=== PATIENT | female | born 1940 | race Caucasian/White ===

== ENCOUNTER 2024-03-27 14:28 | Outpatient (REF) | payer MEDICARE, OTHER, SELFPAY ==
[2024-03-27 19:18] LABS: TSH reflex Free T4 0.94 uIU/mL (0.32-4.0)
[2024-03-27 19:28] LABS: Folate 6.5 ng/mL (> or = 4.0); Vitamin B12 411 pg/mL (200-900)
[2024-04-02 13:28] LABS: Vitamin D 25-OH, D2 <4 ng/mL; Vitamin D 25-OH, D3 27 ng/mL; Vitamin D 25-OH, Total 27 ng/mL (30-100)
== END 2024-03-27 14:29 | disposition home or self-care (01) ==
LOC: HO.LAB 14:28
PROVIDERS: PCP Internal Medicine; Visit Provider Nurse Practitioner Family
DX: R19.7 Diarrhea, unspecified (principal); K59.00 Constipation, unspecified
CPT/HCPCS: 36415; 82306; 82607; 82746; 84443; 99202

== ENCOUNTER 2024-03-27 14:28 | Outpatient (AMB) | payer MEDICARE, OTHER, SELFPAY ==
--- NOTE | 2024-03-27 14:27 | A.OFFVIS_ITS ---
Vital Signs 03/27/24 14:29 Height 5 ft 3.5 in Weight 108 lb 0.424 oz BMI 18.8 BP 131/74 Blood Pressure Location Lt brachial Position Sitting Pulse 87 Intake Visit Reasons: Constipation/Diarrhea Intake Note: Ashlee presents in the office as a new patient constipation and diarrhea. CC: She states that she has chronic constipation and in the fall there were episodes where she was in the ED for impaction and afterwards she had some diarrhea. Daughter states that she needs a new regimen. She states that she takes two linzess in the day. said if it is too strong to skip it and she states that when needed she needs to take two. Distribution [employer] Required: No Allergies No Known Allergies Allergy (Verified 03/27/24 14:44) HPI HPI Constipation/Diarrhea: Details: 83-year-old female with past medical history of constipation, hemorrhoids and memory issues is here today for initial consultation. Patient has been dealing with constipation most of her life. Patient describes that she tried several different medications in the past for constipation, however does not recall to be on something daily prior to October of 2023. Patient had visit in the ER in September for severe constipation and impaction. CT scan revealed no bowel obstruction. Rectal sigmoid area with large amount of stool. Patient was disimpacted at that time and sent home on regimen with MiraLax. PCP placed patient on Linzess 145 mcg daily. Patient states that she has been taking daily, however does not work all the time. Patient states that when she takes 2 capsules she will have diarrhea. Patient denies any abdominal pain or cramping. Denies any nausea or vomiting. Denies any melena, hematochezia, unintentional weight loss or ribbon like stools. Patient denies any dyspepsia, dysphagia or odynophagia. Patient reports that she is not drinking enough fluids. Patient is here today with her daughter, as patient admits to be forgetful at times. Patient lives home alone, patient's daughter lives 3 hours away and is working on setting up in-home help at least 3 times a week for her mother PENDING SALE TO [facility] Surgical History (Updated 03/27/24 @ 14:32 by ALEXX Hitchcock) Hx of colonoscopy Review of Systems Const Denies anorexia, Denies body aches, Denies chills, Denies fatigue, Denies fever(s), Denies weight gain and Denies weight loss ENT Reports no additional complaints, Denies dysphagia and Denies odynophagia Card Reports no additional complaints Resp Reports no additional complaints GI Denies abdominal pain, Denies belching, Denies melena, Denies bloating, Reports constipation, Denies dysphagia, Denies excessive flatus, Denies dyspepsia, Denies heartburn, Denies diarrhea, Denies loose stools, Denies nausea, Denies odynophagia and Denies vomiting Reports no additional complaints Musc Reports no additional complaints Neuro Reports no additional complaints Psych Reports no additional complaints Endo Reports no additional complaints and Denies fatigue Physical Exam Vital Signs: Last Vital Signs Pulse 87 03/27/24 14:29 BP 131/74 03/27/24 14:29 BMI result Body Mass Index 18.8 Const General: healthy appearing, no acute distress and well developed Nutritional Appearance: well nourished Orientation/consciousness: oriented to person, oriented to place, oriented to time and Other orientation findings (Forgetful) Resp Effort & Inspection: normal respiratory effort, able to speak in complete sentences, no tracheal deviation and symmetric chest movement Auscultation: clear to auscultation bilaterally Cardio Rate: regular rate GI Inspection: Yes normal to inspection and No distended Palpation (GI): Soft to palpation, not firm, nontender and No hepatosplenomegaly present Auscultation: normal bowel sounds General: Yes no CVA tenderness Back/Spine/Pelvis Back: no CVA tenderness Skin General skin exam: elasticity normal, turgor normal and dry skin Neuro General: oriented to person, oriented to place and oriented to time Psych Appearance: grossly normal Mental Status: mental status grossly normal Assessment & Plan Assessment & Plan (1) Chronic idiopathic constipation: Code(s): K59.04 - Chronic idiopathic constipation Plan: Patient will continue taking Linzess daily. Patient was encouraged to take it 1st thing in the morning on empty stomach. Drink water throughout the day and increase activity to promote better bowel motility. Patient will take senna 2 tablets in the evening to help her empty her bowels completely. If patient will experience diarrhea she can take 1 tablet or skip at for day. Patient will follow-up in the office in 3 months, sooner on as needed basis. She is agreeable to this plan and verbalizes understanding of instructions. She was given the opportunity to ask questions and all questions answered. Thank you for allowing me to participate in her care Orders: Orders TSH reflex Free T4 Today K59.00 - Constipation, unspecified Vitamin D 25-OH (D2 and D3) Today K59.00 - Constipation, unspecified Vitamin B12 and Folate Today R19.7 - Diarrhea, unspecified Medications: New sennosides (Natural Senna Laxative) 17.2 mg (2 x 8.6 mg) PO BEDTIME 60 tabs 3RF constipation K59.00 - Constipation, unspecified Coding Level of Care Code New Pt Level 4 (74948) Diagnoses Chronic idiopathic constipation K59.04 Time Spent (min) 45 Comment 30 minutes spent with patient and additional 15 minutes spent reviewing his angy rds
[2024-03-27 14:29] VITALS: BP 131/74; PULSE 87; BMI 18.8
== END 2024-03-27 15:24 | disposition home or self-care (01) ==
PROVIDERS: Visit Provider Nurse Practitioner Family
DX: K59.04 Chronic idiopathic constipation (principal)
CPT/HCPCS: 99204